=== PATIENT | female | born 1950 | race African-American/Black ===

== ENCOUNTER 2018-01-11 16:40 | Emergency (ER) | payer MEDICARE, BC ==
[~2018-01-11] VITALS: Ht 160 cm; Wt 68.0 kg
[2018-01-11] MEDS ORDERED: HYDROCHLOROTHIAZIDE 25 MG TAB PO SCH (17:30)
[2018-01-11] MEDS ORDERED: HYDROCHLOROTHIA25 MG PO ×2 (18:20→19:01)
[2018-01-11] MEDS ORDERED: CLONIDINE HCL 0.2 MG TAB PO ONE (18:45)
[2018-01-12 04:01] VITALS: BP 174/76
== END 2018-01-11 20:21 | disposition home or self-care (01) ==
LOC: ER 16:40
DX: I10 Essential (primary) hypertension (principal); Z91.14 Patient's other noncompliance with medication regimen
CPT/HCPCS: 93005